=== PATIENT | male | born 1960 | race Caucasian/White ===

== ENCOUNTER 2020-05-17 09:45 | Outpatient (CLI) | payer BC, SELFPAY ==
--- NOTE | 2020-05-17 06:00 | DI.RAD_ITS ---
EXAM: XR PAIN CLINIC LUMBAR SP 2V CLINICAL HISTORY: Dx: Lumbar Spondylosis TECHNIQUE: 2D and realtime digital imaging was performed. CONTRAST MATERIAL: Refer to procedure report. COMPARISON: No exams were available for comparison FINDINGS: Fluoroscopy was provided for Dr. Jc during the performance of a lumbar pain management. Please re aida to the procedure report for complete details. Fluoro time: 69.9 seconds IMPRESSION:
[2020-05-17 09:58] VITALS: BP 123/77; PULSE 62; RESP 16; TEMP 37.2; O2SAT 97
[2020-05-17 10:45] VITALS: BP 153/80; PULSE 62; RESP 14; O2SAT 99
[2020-05-17] MEDS: Bupivacaine 0.5% Pres-Free 10 ML VIAL IJ (10:46)
[2020-05-17] MEDS: Omnipaque 240 MG/ML 50 ML BTL IJ (10:46)
--- NOTE | 2020-05-17 10:49 | PDOC.PAIN_ITS ---
Pain Clinic Procedure Note Procedure Note Procedure Note: Lumbar/Sacral Medial Branch Blocks JOSE LUIS DUGAN has been referred to the [facility] for lumbar/sacral medial branch blocks. COMMENTS: DX: Lumbosacral spondylosis without myelopathy Patient was interviewed and the medical record reviewed. There were no medical, pharmacologic, radiographic or other structural contraindications to attempting fluoroscopically guided local anesthetic lumbar/sacral medial branch blocks. Risks and expected side effects as well as potential benefit of the procedure were reviewed and voiced concerns addressed. The printed consent form was signed and witnessed. Standard time-out procedure was performed. Patient was placed in the prone position on the fluoroscopy table and automated blood pressure cuff and pulse oximeter applied. The skin entry points for approaching the anatomic target points of the segmental medial branches of the bilateral L3-L5DR were identified with fluoroscopy and marked. Following thorough Chlorhexadine preparation of the skin and draping and 1% lidocaine infiltration of the skin entry points and subcutaneous tissues, a 25 gauge spinal needle was placed under fluoroscopic guidance down on to the target point for each respective segmental medial branch.Position was confirmed in A/P, oblique and lateral views with 0.25ml of omnipaque 240. At this point 0.5ml of 0.5% Bupivacaine was injected at each segmental nerve. Vital signs were stable throughout the procedure and were as recorded in the docflowsheet by the nursing staff. Follow up plans and appointments were discussed and was instructed to keep careful note of how the usual pain was modified by these injections. Specifically was asked to keep a pain diary for the next 24 hours using a numeric pain scale of 0-10 and report these results at the follow-up visit. Pos t procedure instruction was given as documented in the nursing documentation and having met discharge criteria. Patient was discharged from the [facility] Management [facility]. Based on the medial branches blocked today, if the patient has adequate relief and we are able to proceed to radiofrequency ablation, the treatment should result in the denervation of the bilateral L4-L5 and L5-S1 FACET JOINTS. We would expect to denervate a total of 4 facets during the radiofrequency ablation. COMMENTS: He will call back with his 1-4 hour post-procedure pain levels. Fernando Jc DO, MPH Pain Management CC: Yashira Landa
== END 2020-05-17 10:05 ==
PROVIDERS: PCP Registered Nurse; Visit Provider Preventive Medicine Occupational Medicine
DX: M47.817 Spondylosis without myelopathy or radiculopathy, lumbosacral region (principal)
CPT/HCPCS: 64493; 64494; 72100; Q9967

== ENCOUNTER 2020-05-24 11:00 | Outpatient (CLI) | payer BC, SELFPAY ==
[2020-05-24 11:10] VITALS: BP 126/82; PULSE 61; RESP 17; TEMP 36.5; O2SAT 98
--- NOTE | 2020-05-24 11:53 | DI.RAD_ITS ---
EXAM: XR PAIN CLINIC LUMBAR SP 2V CLINICAL HISTORY: Dx: Lumbar Spondylosis TECHNIQUE: 2D and realtime digital imaging was performed. CONTRAST MATERIAL: Refer to procedure report. COMPARISON: No exams were available for comparison FINDINGS: Fluoroscopy was provided for Dr. Jc during the performance of a lumbar medial branch block. Isabelle goins refer to the procedure report for complete details. Fluoro time: 60.7 seconds IMPRESSION:
[2020-05-24 11:59] VITALS: BP 127/75; PULSE 64; RESP 20; O2SAT 99
[2020-05-24] MEDS: Omnipaque 240 MG/ML 50 ML BTL IJ (12:01)
[2020-05-24] MEDS: Lidocaine 2% Pres-Free 5 ML VIAL IJ (12:01)
--- NOTE | 2020-05-24 12:14 | PDOC.PAIN_ITS ---
Pain Clinic Procedure Note Procedure Note Procedure Note: Date of service: 05/24/2020 Lumbar/Sacral Medial Branch Blocks #2 JOSE LUIS DUGAN has been referred to the [facility] for lumbar/sacral medial branch blocks. COMMENTS: He did very well with his first LMBB. DX: Lumbosacral spondylosis without myelopathy Patient was interviewed and the medical record reviewed. There were no medical, pharmacologic, radiographic or other structural contraindications to attempting fluoroscopically guided local anesthetic lumbar/sacral medial branch blocks. Risks and expected side effects as well as potential benefit of the procedure were reviewed and voiced concerns addressed. The printed consent form was signed and witnessed. Standard time-out procedure was performed. Patient was placed in the prone position on the fluoroscopy table and automated blood pressure cuff and pulse oximeter applied. The skin entry points for approaching the anatomic target points of the segmental medial branches of bilateral L3-L5DR were identified with fluoroscopy and marked. Following thorough Chlorhexadine preparation of the skin and draping and 1% lidocaine infiltration of the skin entry points and subcutaneous tissues, a 22 gauge spinal needle was placed under fluoroscopic guidance down on to the target point for each respective segmental medial branch. Position was confirmed in A/P, oblique and lateral views with 0.25ml of omnipaque 240. At this point 0.5 cc of 2% Lidocaine was injected at each segmental sensory nerve. Vital signs were stable throughout the procedure and were as recorded in the docflowsheet by the nursing staff. Follow up plans and appointments were discussed and was instructed to keep careful note of how the usual pain was modified by these injections. Specifically was asked to keep a pain diary for the next 24 hours using a numeric pain scale of 0-10 and report these results at the follow-up visit. Post procedure instruction was given as documented in the nursing documentation and having met discharge criteria. Patient was discharged from the Pain Management Center. Based on the medial branches blocked today, if the patient has adequate relief and we are able to proceed to radiofrequency ablation, the treatment should resu lt in the denervation of the bilateral L4-L5 and L5-S1 FACET JOINTS. We would expect to denervate a total of 4 facets during the radiofrequency ablation. COMMENTS: He will again call us back with his 1-4 hour post-procedure pain levels. Fernando Jc DO, MPH Pain Management CC: Yashira Landa
== END 2020-05-24 11:20 ==
PROVIDERS: PCP Registered Nurse; Visit Provider Preventive Medicine Occupational Medicine
DX: M47.817 Spondylosis without myelopathy or radiculopathy, lumbosacral region (principal)
CPT/HCPCS: 64493; 64494; 72100; Q9967

== ENCOUNTER 2020-06-23 07:55 | Outpatient (CLI) | payer BC, SELFPAY ==
--- NOTE | 2020-06-23 06:00 | DI.RAD_ITS ---
EXAM: XR PAIN CLINIC LUMBAR SP 2V CLINICAL HISTORY: Dx: Lumbar Spondylosis TECHNIQUE: 2D and realtime digital imaging was performed. CONTRAST MATERIAL: Refer to procedure report. COMPARISON: No exams were available for comparison FINDINGS: Fluoroscopy was provided for Dr. Jc during the performance of a bilateral lumbar radiofrequency ab lation. Please refer to the procedure report for complete details. Fluoro time: 94.2 seconds IMPRESSION:
[2020-06-23 08:04] VITALS: BP 116/80; PULSE 62; RESP 17; TEMP 36.6; O2SAT 95
[2020-06-23] MEDS: Lactated Ringers 1,000 ML 80 ML IV (08:25)
[2020-06-23] MEDS: fentaNYL 100 MCG/2 ML VIAL IVP ×3 (08:45→09:19)
[2020-06-23] MEDS: Midazolam 2 MG/2 ML VIAL IVP (08:46)
[2020-06-23 09:27] VITALS: BP 134/92; PULSE 57; RESP 18; O2SAT 99
--- NOTE | 2020-06-23 09:32 | PDOC.PAIN_ITS ---
Pain Clinic Procedure Note Procedure Note Procedure Note: Bilateral Lumbar Radiofrequency with Coolief Machine PROCEDURE NOTE Date of Service: June 23, 2020 Patient: JOSE LUIS DUGAN Provider: Fernando Jc DO, MPH Pre Operative Diagnosis: Lumbosacral spondylosis without myelopathy Post Operative Diagnosis: Same PROCEDURE: Radiofrequency Ablation of medial branches - bilateral L3 L4 L5 and the bilateral S1 lateral branches Comments: I added the bilateral S1 lateral branches to potentially improve the ablation of the L5-S1 facet without added cost. JOSE LUIS DUGAN was brought into the fluoroscopy suite and positioned into the prone position on the fluoroscopy table and allowed to adjust to a position of comfort. A grounding pad was placed on the [right/left] thigh. The lumbar region was widely prepped with a chloraprep solution, allowed to air dry and draped in standard sterile surgical fashion. Local anesthesia was provided by 6 mL of 2% Lidocaine delivered with a 25g needle. A 17g 1000mm radiofrequency introducer needle was placed to the planned anatomic targets guided with intermittent fluoroscopy with a perpendicular approach to terminally place at the junction of the superior articular process and the transverse process of the bilateral L3 L4 L5, the base of the sacral ala on the bilateral for the L5 medial branch nerve and the area between the sacral ala and the S1 neuroforamen bilaterally for the S1 lateral branchs. The stylets were removed and radiofrequency probes with a 4mm active tip were then inserted. Needle tip position of the probes was verified in the AP, oblique, and lateral views. At each site, the medial branch nerve was stimulated at 2 Hz to a maxi mum 1-2 volts determined to finalize safe needle and electrode placement. The patient was awake and responsive during this portion of the procedure. Each target was anesthetized with 1-2 mL of 2% Lidocain for anesthesia for lesioning and then each target was lesioned at 80 degrees Celsius for 2 minutes and 30 seconds. Tissue impedences were noted to be between 250 and 500 Ohms. I injected 1/4 cc of Depomedrol and 1 cc of 0.5% Bupivacaine to each sensory nerve after each ablation. Electrodes and needles were then removed and bandages placed over the needle placement sites, the patient then returned to the supine position on a stretcher and transported to the recovery room without hemodynamic, neurologic, or allergic reactions. Fluoroscopic images were printed for hard copy recording and digitally archived. Follow up plans and appointments were discussed with the JOSE LUIS . Post procedure instruction was given as documented in nursing documentation and having met discharge criteria, JOSE LUIS was discharged from the Pain Management Center. COMMENTS: No complications. F/U with our office as needed. I personally performed this entire procedure. Fernando Jc DO, MPH Pain Management Attending Physician
[2020-06-23] MEDS: Lidocaine 2% Pres-Free 5 ML VIAL IJ (09:39)
[2020-06-23] MEDS: methylPREDNISolone ACETATE 40 MG/ML VIAL IJ (09:40)
[2020-06-23] MEDS: Bupivacaine 0.5% Pres-Free 10 ML VIAL IJ (09:40)
== END 2020-06-23 08:15 ==
PROVIDERS: PCP Registered Nurse; Visit Provider Preventive Medicine Occupational Medicine
DX: M47.817 Spondylosis without myelopathy or radiculopathy, lumbosacral region (principal)
CPT/HCPCS: 64635; 64636; 72100; J1030; J2250; J3010

== ENCOUNTER 2021-06-15 11:50 | Outpatient (CLI) | payer BC, SELFPAY ==
[2021-06-15 12:06] VITALS: BP 128/67; PULSE 67; RESP 18; TEMP 36.6; O2SAT 97
[2021-06-15] MEDS: methylPREDNISolone ACETATE 80 MG/ML VIAL IJ (12:33)
[2021-06-15] MEDS: Omnipaque 240 MG/ML 50 ML BTL IJ (12:33)
[2021-06-15 12:39] VITALS: BP 133/78; PULSE 64; RESP 18; O2SAT 97
--- NOTE | 2021-06-15 12:41 | DI.RAD_ITS ---
Exam(s) XR PAIN CLINIC LUMBAR SP 2V EXAM: XR PAIN CLINIC LUMBAR SP 2V CLINICAL HISTORY: DX: Lumbar Radiculopathy. TECHNIQUE: Fluoroscopy was provided for the referring physician for guidance with performing injecti on procedure. COMPARISON: No exams were available for comparison FINDINGS: Please see procedure note for details. Fluoro time 18.6 seconds RADIATION DOSE DELIVERED: michael Morales= 10.21 mGy
--- NOTE | 2021-06-15 12:44 | PDOC.PAIN_ITS ---
Pain Clinic Procedure Note Procedure Note Procedure Note: Lumbar Epidural Steroid Injection Procedure Note COMMENTS: I evaluated him in the clinic on 06/07/21. He held his ASA as directed. DX: Lumbar radiculopathy Pre-procedure pain VAS = 1/10 JOSE LUIS DUGAN has been referred to the Pain Management Center for lumbar epidural steroid injection. The patient was greeted by the nurse who verified patients name and . Patient was then taken to the fluoroscopy suite. The patient was interviewed and the medial record reviewed. There were no medical, pharmacologic, radiographic, or other structural contraindications to attempting fluoroscopically guided lumbar epidural steroid injection. Risks and expected side effects as well as potential benefits of the procedure were reviewed and voiced concerns expressed. The patient consent form was signed and witnessed. Standard patient time-out procedure was performed. The patient was placed in the prone position on the fluoroscopy table and automated blood pressure cuff and pulse oximeter applied. The skin entry point for entering/approaching the epidural space at L5-S1 and marked. Following thorough chlorhexadine preparation of the skin and draping and 1% lidocaine infiltration of the skin entry point and subcutaneous tissues, a 18 gauge Touhy needle was placed under fluoroscopic guidance and with loss of resistance technique into the epidural space. Needle tip placement and depth were aided and confirmed by fluoroscopy. There was no paresthesia or return of blood or CSF through the needle. 1 cc's of Omnipaque 240 was injected with clear epidural s pread confirmed with fluoroscopy. 80mg depomedrol was injected. There was not any unusual discomfort expressed by JOSE LUIS DUGAN. Patient's vital signs were stable throughout the procedure and were as recorded in nursing records. Follow up plans and appointments were discussed with patient. Post procedure instruction was given as documented in nursing records and having met discharge criteria and was discharged from the Pain Management Center. COMMENTS: If this procedure is helpful, it can be completed up to 3 times per 12 months. Post-procedure pain VAS = 1/10. Fernando Jc DO, MPH [facility]-Pain Management [facility]
== END 2021-06-15 11:51 | disposition home or self-care (01) ==
LOC: PC 11:54
PROVIDERS: PCP Registered Nurse; Visit Provider Preventive Medicine Occupational Medicine
DX: M54.16 Radiculopathy, lumbar region (principal)
CPT/HCPCS: 62323; 72100; J1040; Q9967

== ENCOUNTER 2022-03-14 11:01 | Outpatient (CLI) | payer BC, SELFPAY ==
--- NOTE | 2022-03-14 06:00 | DI.RAD_ITS ---
Exam(s) XR PAIN CLINIC LUMBAR SP 2V EXAM: XR PAIN CLINIC LUMBAR SP 2V CLINICAL HISTORY: Dx: Lumbar Radiculopathy TECHNIQUE: 2D and realtime digital imaging was performed. COMPARISON: No exams were available for comparison FINDINGS: C-arm fluoroscopy was utilized by Dr. Jc during reported lumbar epidural steroid injection. Hard c opy shows injection in the epidural space at what appears to be the L5-S1 level. IMPRESSION: RADIATION DOSE DELIVERED: michael Morales=9.18 mGy
[2022-03-14 11:09] VITALS: BP 119/78; PULSE 71; RESP 20; TEMP 36.6; O2SAT 99
[2022-03-14] MEDS: methylPREDNISolone ACETATE 80 MG/ML VIAL IJ (11:43)
[2022-03-14] MEDS: Omnipaque 240 MG/ML 50 ML BTL IJ (11:44)
[2022-03-14 11:46] VITALS: BP 124/75; PULSE 57; RESP 12; O2SAT 99
--- NOTE | 2022-03-14 13:56 | PDOC.PAIN_ITS ---
Pain Clinic Procedure Note Procedure Note Procedure Note: Lumbar Epidural Steroid Injection Procedure Note COMMENTS: He had 8 months of relief with his last LESI. Pre-procedure pain VAS was 8/10 Dx: Lumbar radiculopathy Stanley Victoria has been referred to the Pain Management Center for lumbar epidural steroid injection. The patient was greeted by the nurse who verified patients name and . Patient was then taken to the fluoroscopy suite. The patient was interviewed and the medial record reviewed. There were no medical, pharmacologic, radiographic, or other structural contraindications to attempting fluoroscopically guided lumbar epidural steroid injection. Risks and expected side effects as well as potential benefits of the procedure were reviewed and voiced concerns expressed. The patient consent form was signed and witnessed. Standard patient time-out procedure was performed. The patient was placed in the prone position on the fluoroscopy table and automated blood pressure cuff and pulse oximeter applied. The skin entry point for entering/approaching the epidural space by a L5-S1 and marked. Following thorough chlorhexadine preparation of the skin and draping and 1% lidocaine infiltration of the skin entry point and subcutaneous tissues, a 18 gauge Touhy needle was placed under fluoroscopic guidance and with loss of resistance technique into the epidural space. Needle tip placement and depth were aided and confirmed by fluoroscopy. There was no paresthesia or return of blood or CSF through the needle. 1 cc's of Omnipaque 240 was injected with clear epidural spread confirmed with fluoroscopy. 80mg depomedrol was injected. There was not any unusual discomfort expressed by Stanley Victoria. Patient's vital signs were stable throughout the procedure and were as recorded in nursing records. Follow up plans and appointments were discussed with patient. Post procedure instruction was given as documented in nursing records and having met discharge criteria and was discharged from the Pain Management Center. COMMENTS: If this procedure is helpful, it can be completed up to 3 times per 12 months. Post-procedure pain VAS was 0/10 Fernando Jc DO, MPH [facility]-Pain Management [facility] for Pain Management
== END 2022-03-14 11:02 | disposition home or self-care (01) ==
LOC: PC 11:02
PROVIDERS: PCP Registered Nurse; Visit Provider Preventive Medicine Occupational Medicine
DX: M54.16 Radiculopathy, lumbar region (principal)
CPT/HCPCS: 62323; 72100; J1040; Q9967

== ENCOUNTER 2023-04-04 09:23 | Outpatient (CLI) | payer BC, SELFPAY ==
--- NOTE | 2023-04-04 06:00 | DI.RAD_ITS ---
Exam(s) XR PAIN CLINIC LUMBAR SP 2V EXAM: XR PAIN CLINIC LUMBAR SP 2V CLINICAL HISTORY: Dx: Lumbar Radiculopathy TECHNIQUE: 2D and realtime digital imaging was performed. CONTRAST MATERIAL: Refer to procedure report. COMPARISON: No exams were available for comparison FINDINGS: Fluoroscopy was provided for Dr. Jc during the performance of a lumbar epidural steroid injection. Please refer to the procedure report for complete details. Ka,r=9.46 mGy IMPRESSION:
[2023-04-04 09:46] VITALS: BP 135/80; PULSE 61; RESP 20; TEMP 36.5; O2SAT 99
--- NOTE | 2023-04-04 10:17 | PDOC.PAIN ---
Date of service: 04/04/23 Time of Service: 10:17 Pain Managment Procedure Note Procedure Note Procedure Note: PROCEDURE NOTE LUMBAR EPIDURAL STEROID INJECTION Date of Service: April 04, 2023 Patient:Stanley Gomez? Provider: Fernando Jc DO, MPH Stanley Victoria has been referred to the Pain Management Center for a lumbar epidural steroid injection. Pre-operative diagnosis: Lumbosacral Radiculopathy Post-operative diagnosis: Same Pre-Procedure Pain: VAS= 6 /10 Comments: Last LESI was 03/14/22 with >6 months of >50% pain relief Stanley was interviewed and the medical record was reviewed.? There were no medical, pharmacologic, radiographic or other structural contraindications to attempting fluoroscopically guided Lumbar epidural steroid injection.? Risks, potential side effects, indications, and potential benefits of the procedure were reviewed with Stanley.? Questions and concerns were addressed.? After it was clear that Stanley was fully informed about the procedure, the printed consent form was signed by the patient and myself.? Stanley was placed in the prone position on the fluoroscopy table and automated blood pressure cuff and pulse oximeter applied. The skin entry point for entering/approaching the epidural space for the lumbar epidural steroid injection was marked. Following thorough chlorhexadine preparation of the skin and draping and 1% lidocaine infiltration of the skin entry point and subcutaneous tissues, an 18 gauge Touhy needle was placed and advanced under fluoroscopic guidance and with loss of resistance technique into the L5-S1 epidural space. Needle tip placement and depth were aided and confirmed by fluoroscopy. There was no paresthesia or return of blood or CSF through the needle. 1 mls of Omnipaque 240 was injected with clear epidural spread confirmed with fluoroscopy. 80 mg of Depo-Medrol was? injected. This was followed by 1 ml of preservative-free normal saline to flush the steroid out of the needle. There was no unusual discomfort expressed by Stanley. The needle was withdrawn without difficulty. (49 mls of Omnipaque was wasted) Stanley was observed and was without hemodynamic, neurologic, or allergic reactions.? Fluoroscopic images were digitally archived. Stanley's vital signs were stable throughout the procedure and were as recorded in nursing records. Follow up plans and appointments were discussed with Stanley. Post procedure instruction was given as documented in nursing records and having met discharge criteria Stanley was discharged from the Pain Management Center. COMMENTS: No apparent complications. Post-procedure pain: VAS= 2/10. Stanley to contact [facility] as needed. If at least 50% improvement in pain and/or function for at least 3 months is achieved, this procedure can be repeated. I personally performed this entire procedure. FERNANDO JC DO, MPH [employer]-subspecialty board certification in Pain Medicine [facility]-Center for Pain Management
[2023-04-04 10:20] VITALS: BP 134/81; PULSE 56; RESP 16; O2SAT 100
[2023-04-04] MEDS: methylPREDNISolone ACETATE 80 MG/ML VIAL IJ (10:34)
[2023-04-04] MEDS: Omnipaque 240 MG/ML 50 ML BTL IJ (10:34)
== END 2023-04-04 09:24 | disposition home or self-care (01) ==
LOC: PC 09:23
PROVIDERS: PCP Registered Nurse; Visit Provider Preventive Medicine Occupational Medicine
DX: M47.817 Spondylosis without myelopathy or radiculopathy, lumbosacral region (principal)
CPT/HCPCS: 00123; 62323; 72100; J1040; Q9967